=== PATIENT | female | born 1990 | race Caucasian/White ===

== ENCOUNTER 2018-04-28 20:24 | Emergency (ER) | payer MEDICAID ==
[~2018-04-28] VITALS: Ht 152.4 cm; Wt 59.0 kg
[2018-04-28 20:41] VITALS: BP_SYST 151
--- NOTE | 2018-04-28 20:49 | NUR ---
Patient triaged and placed in waiting room. VSS and patient appears in no acute distress at this time. Accompanied by PT, awaiting available bed, and MD notified of need for MSE.
--- NOTE | 2018-04-28 21:28 | NUR ---
Patient to ER bed 8 to gown for evaluation. Side rails up.
--- NOTE | 2018-04-28 21:50 | NUR ---
Patient arrived from home brought in by friend. AAOx4 and able to verbalize her needs. States she has been drinking alcohol, (case of beer), has nausea, mild back pain. Denies any chest pain, vomiting, sob, and fever. Breathing is even and unlabored. Able to ambulate with a steady gait. States she is here to check out shakiness in hands and hx of rheumatoid arthritis.
[2018-04-28] MEDS ORDERED: FOLIC ACID 1 MG, THIAMINE HCL 100 MG, MAGNESIUM SULFATE 1 GM, MVI 10 ML in NACL 0.9% 1,... IV ONE (22:45)
[2018-04-28] MEDS ORDERED: LORazepam 2 MG/ML VIAL (FOR ER USE) IVP ONE (22:45)
[2018-04-28] MEDS ORDERED: MVI 10 ML VIAL IV ONE (23:03)
[2018-04-28] MEDS ORDERED: THIAMINE HCL 100 MG/ML VIAL ONE (23:03)
[2018-04-28] MEDS ORDERED: FOLIC ACID 5 MG/ML VIAL IV ONE (23:03)
[2018-04-28] MEDS ORDERED: MAGNESIUM SULFATE 1 GM/2 ML VIAL ONE (23:03)
[2018-04-28 23:07] LABS: BILIRUBIN,URINE NEGATIVE (NEGATIVE); BLOOD, URINE 1+ (NEGATIVE); CLARITY/URINE CLEAR (CLEAR); COLOR,URINE YELLOW (YELLOW); GLUCOSE,URINE NEGATIVE (NEGATIVE); KETONES,URINE 1+ (NEGATIVE); LEUKOCYTE ESTERASE ,URINE NEGATIVE (NEGATIVE); NITRITE, URINE NEGATIVE (NEGATIVE); PH,URINE 6.5 (5.0-8.0); PROTEIN URINE NEGATIVE (NEGATIVE)
--- NOTE | 2018-04-28 23:10 | NUR ---
# 22 gauge angiocath placed to left hand. Use of asceptic technique. Opsite placed over site. Blood return noted. Blood for lab drawn from site. Flushed with 10 cc of normal saline. No evidence of infiltration noted. Patient tolerated well.
[2018-04-28 23:18] LABS: BACTERIA,URINE RARE /HPF (None Seen); WBC,URINE 0-3 /HPF (0-3)
[2018-04-28 23:20] LABS: BARBITURATE, URINE NEGATIVE (NEG <=200); BENZODIAZEPINE, URINE NEGATIVE (NEG <=150); CANNABINOID, URINE POSITIVE (NEG <=50); COCAINE, URINE POSITIVE (NEG <=150); METHAMPHETAMINES SCREEN,URINE NEGATIVE (NEG <=500); OPIATE, URINE NEGATIVE (NEG <=100); PHENCYCLIDINE SCREEN,URINE NEGATIVE (NEG <=25); UR TRICYCLIC ANTIDEPRESSANTS NEGATIVE (NEG <=300); URINE AMPHETAMINE NEGATIVE (NEG <=500); URINE METHADONE NEGATIVE (NEG <=200); URINE OXYCODONE SCREEN NEGATIVE (NEG <=100); URINE PROPOXYPHENE SCREEN NEGATIVE (NEG <=300)
[2018-04-28] MEDS ORDERED: KETOROLAC TROMETHAMINE 15 MG VIAL IVP ONE (23:30)
[2018-04-28 23:32] LABS: EOSINOPHILS # (AUTO) 0.1 K/uL (0.0-0.4); EOSINOPHILS % (AUTO) 0.6 % (0.0-4.0); HEMOGLOBIN 14.4 g/dL (12.0-16.0); WHITE BLOOD COUNT (AUTO) 9.6 K/uL (4.8-10.8)
[2018-04-28 23:44] LABS: BASOPHILS # (AUTO) 0.2 K/uL (0.0-0.2); BASOPHILS % (AUTO) 2.3 % (0.0-2.0); HEMATOCRIT 42.4 % (36-48); LYMPHOCYTES # (AUTO) 2.6 K/uL (1.0-5.5); LYMPHOCYTES % (AUTO) 26.8 % (20.5-51.5); MEAN CORPUSCULAR HEMOGLOBIN 31 pg (27-31); MEAN CORPUSCULAR HGB CONC 34 % (32-36); MEAN CORPUSCULAR VOLUME 91 fL (79.0-98.0); MONOCYTES # (AUTO) 0.4 K/uL (0.0-1.0); MONOCYTES % (AUTO) 4.5 % (1.7-9.3); NEUTROPHILS # (AUTO) 6.2 K/uL (1.8-7.7); NEUTROPHILS % (AUTO) 65.8 % (40.0-70.0); PLATELET COUNT (AUTO) 393 K/uL (130-430); RED BLOOD CELL COUNT(AUTO) 4.66 MIL/uL (4.2-6.2); RED CELL DISTRIBUTION WIDTH 12.6 % (9.0-15.0)
--- NOTE | 2018-04-28 23:50 | NUR ---
ER at bedside examining patient.
[2018-04-29 00:37] LABS: ERYTHROCYTE SEDIMENTATION RATE 18 MM/HR (0-20)
[2018-04-29 01:07] LABS: ANION GAP 12 (5-15); CALCIUM 8.5 mg/dL (8.4-11.0); CHLORIDE 102 mmol/L (98-107); CREATININE 0.57 mg/dL (0.55-1.30); GLUCOSE 98 mg/dL (70-99); POTASSIUM 3.4 mmol/L (3.5-5.1); SODIUM SERUM 138 mmol/L (136-145); UREA NITROGEN, BLOOD 7 mg/dL (8-21)
[2018-04-29 01:13] LABS: ALANINE AMINOTRANSFERASE 36 U/L (12-78); ALBUMIN 3.3 g/dL (3.4-4.8); ASPARTATE AMINOTRANSFERASE 25 U/L (10-37); TOTAL BILIRUBIN 0.8 mg/dL (0.0-1.0)
[2018-04-29 01:14] LABS: GFR AFRICAN AMERICAN 165 mL/min (>90)
[2018-04-29 01:15] LABS: ALCOHOL, BLOOD < 3 mg/dL (<10)
[2018-04-29 01:55] VITALS: BP_SYST 142
--- NOTE | 2018-04-29 02:03 | NUR ---
Patient given written and verbal discharge instructions and verbalizes understanding. ER MD discussed with patient the results and treatment provided. Patient in stable condition. ID arm band removed. IV catheter removed intact and dressing applied, no active bleeding. Rx of Librium given. Patient educated on pain management and to follow up with PMD. Pain Scale 0. Opportunity for questions provided and answered. Medication side effect fact sheet provided.
[2018-04-29] MEDS ORDERED: FOLIC ACID 1 MG, THIAMINE HCL 100 MG, MAGNESIUM SULFATE 1 GM, MVI 10 ML in NACL 0.9% 1,... IV SCH (22:45)
== END 2018-04-29 02:03 | disposition home or self-care (01) ==
LOC: SED 20:24
DX: F10.239 Alcohol dependence with withdrawal, unspecified (principal); F10.229 Alcohol dependence with intoxication, unspecified; F14.90 Cocaine use, unspecified, uncomplicated; F12.90 Cannabis use, unspecified, uncomplicated; R03.0 Elevated blood-pressure reading, without diagnosis of hypertension; Y90.0 Blood alcohol level of less than 20 mg/100 ml
CPT/HCPCS: 36415; 80053; 80307; 81000; 81025; 85025; 85651; 96365; 96375; 99283; G0482; J1885; J2060; J3411; J3475; J3490; J7030

== ENCOUNTER 2020-02-14 02:21 | Emergency (ER) | payer MEDICAID ==
[~2020-02-14] VITALS: Ht 157.5 cm; Wt 68.0 kg
[2020-02-14 02:25] VITALS: BP_SYST 121
--- NOTE | 2020-02-14 02:31 | NUR ---
Patient to ER bed 8 to gown for evaluation. Side rails up. Report given to KIMMY OTERO.
--- NOTE | 2020-02-14 02:33 | NUR ---
Dr. Jeong bedside for pt eval
--- NOTE | 2020-02-14 02:35 | NUR ---
Pt BIB friend to ED seeking evaluation of right wrist pain status post injury. Per friend the patient was drinking and tripped on her way down the stairs. Friend denies loss of consciousness or head injury. Patient appears intoxicate
--- NOTE | 2020-02-14 02:45 | NUR ---
Portable X Ray bedside, well tolerated
[2020-02-14 03:00] VITALS: BP_SYST 121
[2020-02-14] MEDS ORDERED: IBUPROFEN 600 MG TABLET PO ONE (03:00)
--- NOTE | 2020-02-14 03:00 | NUR ---
Patient given written and verbal discharge instructions and verbalizes understanding. ER MD discussed with patient the results and treatment provided. Patient in stable condition. ID arm band removed. Rx of Naprosyn given. Patient educated on pain management and to follow up with PMD. Pain Scale 0/10 Opportunity for questions provided and answered. Medication side effect fact sheet provided.
== END 2020-02-14 03:00 | disposition home or self-care (01) ==
LOC: SED 02:21
DX: S63.591A Other specified sprain of right wrist, initial encounter (principal); F10.129 Alcohol abuse with intoxication, unspecified; W01.0XXA Fall on same level from slipping, tripping and stumbling without subsequent striking against object, initial encounter; Y93.89 Activity, other specified; Y92.89 Other specified places as the place of occurrence of the external cause; Y99.8 Other external cause status
CPT/HCPCS: 99283